=== PATIENT | female | born 1980 | race Caucasian/White ===

== ENCOUNTER 2016-12-05 17:22 | Emergency (ER) | payer OTHER ==
[~2016-12-05] VITALS: Ht 175.3 cm; Wt 93.7 kg
[2016-12-05] MEDS ORDERED: LIDOCAINE 1% MDV 20ML VIAL SC ONE (18:45)
[2016-12-05 19:18] VITALS: BP 118/79
== END 2016-12-05 19:20 | disposition home or self-care (01) ==
LOC: M ED 18:42
DX: S61.214A Laceration without foreign body of right ring finger without damage to nail, initial encounter (principal); W26.8XXA Contact with other sharp object(s), not elsewhere classified, initial encounter; Y92.89 Other specified places as the place of occurrence of the external cause; Y93.89 Activity, other specified; Y99.8 Other external cause status

== ENCOUNTER 2017-10-08 15:00 | Emergency (ER) | payer SELFPAY, OTHER ==
[2017-10-08] MEDS: methylPREDNISolone INJ 125 MG/2 ML VIAL (J2930) IV (15:52)
[2017-10-08 16:00] LABS: BASO # 0.1 10^3/uL (0.0-0.2); BASO % 0.4 % (0.0-1.0); EOS # 0.2 10^3/uL (0.0-0.50); EOS % 1.3 % (0.0-3.0); HEMATOCRIT 38.7 % (36.0-47.0); HEMOGLOBIN 12.4 g/dl (12.0-15.5); IMMATURE GRANULOCYTE % 0.4 % (0-3.0); LYMPH # 1.2 10^3/uL (1.5-4.5); LYMPH % 10.5 % (24.0-44.0); MEAN CORPUSCULAR HEMOGLOBIN 30.6 pg (27.0-33.0); MEAN CORPUSCULAR VOLUME 95.6 fl (80.0-96.0); MONO # 0.5 10^3/uL (0.0-0.8); NEUTROPHILS # 9.5 10^3/uL (1.8-7.7); NEUTROPHILS % 83.4 % (36.0-66.0); PLATELET COUNT, AUTOMATED 381 10^3/uL (150-450); RED BLOOD COUNT 4.05 10^6/uL (4.00-5.40); RED CELL DISTRIBUTION WIDTH 13.3 % (11.5-14.5); WHITE BLOOD COUNT 11.4 10^3/uL (4.0-10.0)
[2017-10-08 16:12] LABS: D-DIMER QUANT 439.8 ng/ml (<500)
[2017-10-08] MEDS: IPRATROPIUM 0.5MG/ALBUTEROL 2.5MG INH SOL UD 3ML (DUONEB)(J7620) NEB (16:26)
[2017-10-08 16:31] LABS: BLOOD UREA NITROGEN 6 MG/DL (7-18); CREATININE FOR GFR 0.78 MG/DL (0.55-1.30); GLUCOSE, FASTING 107 MG/DL (70-100)
[2017-10-08 16:32] LABS: ANION GAP 6 MEQ/L (8-16); CALCIUM LEVEL 8.6 MG/DL (8.5-10.1); CARBON DIOXIDE LEVEL 26 MEQ/L (21-32); CHLORIDE LEVEL 106 MEQ/L (98-107); GLOMERULAR FILTRATION RATE > 60.0 (>60); POTASSIUM SERUM 4.1 MEQ/L (3.5-5.1); SODIUM LEVEL 138 MEQ/L (136-145)
[2017-10-08] MEDS: ALBUTEROL SULFATE 2.5 MG/0.5 ML INH NEB SOLN NEB (17:44)
== END 2017-10-08 17:58 | disposition home or self-care (01) ==
LOC: M ED 15:00
DX: R06.02 Shortness of breath (principal); F17.210 Nicotine dependence, cigarettes, uncomplicated; Z88.1 Allergy status to other antibiotic agents; J30.1 Allergic rhinitis due to pollen
CPT/HCPCS: J2930

== ENCOUNTER 2019-03-11 23:38 | Emergency (ER) | payer SELFPAY ==
[~2019-03-11] VITALS: Ht 175.3 cm; Wt 86.4 kg
[~2019-03-11 23:38] MED LIST: E-ZMIS3 XX; PRED20TA PO; PROAAER10 INH; TESS100C PO
[2019-03-12] MEDS ORDERED: METHOCARBAMOL 1,000 MG/10 ML VIAL (J2800) IV ONE (01:30)
[2019-03-12] MEDS ORDERED: KETOROLAC 30 MG/ML VIAL (J1885) IV ONE (01:30)
[2019-03-12] MEDS ORDERED: METAL LOCK LOOP XX ONE (01:55)
[2019-03-12 02:22] LABS: BASO # 0.1 10^3/uL (0.0-0.2); EOS # 0.4 10^3/uL (0.0-0.5); EOS % 4.3 % (0.0-3.0); HEMATOCRIT 36.2 % (36.0-47.0); HEMOGLOBIN 11.7 g/dl (12.0-15.5); LYMPH # 3.7 10^3/uL (1.5-5.0); LYMPH % 38.8 % (24.0-44.0); MEAN CORPUSCULAR HEMOGLOBIN 30.7 pg (27.0-33.0); MEAN CORPUSCULAR HGB CONC 32.3 g/dl (32.0-36.5); MONO # 0.7 10^3/uL (0.0-0.8); MONO % 7.4 % (0.0-5.0); NEUTROPHILS # 4.6 10^3/uL (1.5-8.5); NEUTROPHILS % 48.2 % (36.0-66.0); PLATELET COUNT, AUTOMATED 328 10^3/uL (150-450); RED BLOOD COUNT 3.81 10^6/uL (4.00-5.40); WHITE BLOOD COUNT 9.4 10^3/uL (4.0-10.0)
[2019-03-12 02:46] LABS: ERYTHROCYTE SEDIMENTATION RATE 13 mm/hr (0-20)
[2019-03-12] MEDS ORDERED: ROBA750T4 PO (02:58)
[2019-03-12 03:34] VITALS: BP 176/96
== END 2019-03-12 03:36 | disposition home or self-care (01) ==
LOC: M ED 23:38
DX: S16.1XXA Strain of muscle, fascia and tendon at neck level, initial encounter (principal); X58.XXXA Exposure to other specified factors, initial encounter; Y92.89 Other specified places as the place of occurrence of the external cause; R68.84 Jaw pain; J02.9 Acute pharyngitis, unspecified; F17.200 Nicotine dependence, unspecified, uncomplicated
CPT/HCPCS: 85025; 85652; 86140; 96374; 96375; 99284; J1885; J2800

== ENCOUNTER → 2021-10-03 | Outpatient (CLI) | payer OTHER, SELFPAY ==
[~2021-10-03] MED LIST changes: +ROBA750T4 PO
== END ==
LOC: M WUC 15:42
PROVIDERS: ATTEND Physician Assistant
DX: S80.02XA Contusion of left knee, initial encounter (principal); S80.12XA Contusion of left lower leg, initial encounter; W18.30XA Fall on same level, unspecified, initial encounter; Y92.009 Unspecified place in unspecified non-institutional (private) residence as the place of occurrence of the external cause

== ENCOUNTER 2022-05-01 13:05 | Emergency (ER) | payer OTHER ==
[~2022-05-01] VITALS: Ht 175.3 cm; Wt 93.2 kg
[2022-05-01] MEDS ORDERED: CLAR10CA3 PO (13:13)
[2022-05-01 18:34] VITALS: BP 160/98
== END 2022-05-01 18:39 | disposition home or self-care (01) ==
LOC: M ED 13:05
DX: M65.4 Radial styloid tenosynovitis [de Quervain] (principal)

== ENCOUNTER 2022-06-20 17:27 | Emergency (ER) | payer OTHER ==
[~2022-06-20] VITALS: Ht 175.3 cm; Wt 86.4 kg
[~2022-06-20 17:27] MED LIST changes: +CLAR10CA3 PO
[2022-06-20 17:28] VITALS: BP 114/75
[2022-06-20] MEDS ORDERED: NORCO, ANEXSIA 5/325MG TABLET (HYDROcodone/ACETAMINOPHEN) PO ONE (19:45)
== END 2022-06-20 20:50 | disposition home or self-care (01) ==
LOC: M ED 17:27
DX: S82.831A Other fracture of upper and lower end of right fibula, initial encounter for closed fracture (principal); W00.0XXA Fall on same level due to ice and snow, initial encounter; Y92.830 Public park as the place of occurrence of the external cause; Y99.0 Civilian activity done for income or pay; F12.10 Cannabis abuse, uncomplicated; J30.89 Other allergic rhinitis; J30.1 Allergic rhinitis due to pollen; Z91.010 Allergy to peanuts; Z88.1 Allergy status to other antibiotic agents

== ENCOUNTER 2023-08-05 09:36 | Emergency (ER) | payer OTHER ==
[~2023-08-05] VITALS: Ht 175.3 cm; Wt 96.3 kg
[2023-08-05 09:36] VITALS: TEMP 97.8
[2023-08-05 10:52] LABS: BASO # 0.1 10^3/uL (0.0-0.2); BASO % 1.6 % (0.0-1.0); EOS # 0.5 10^3/uL (0.0-0.5); EOS % 7.6 % (0.0-3.0); HEMATOCRIT 39.2 % (36.0-47.0); HEMOGLOBIN 12.8 g/dl (12.0-15.5); LYMPH # 2.4 10^3/uL (1.5-5.0); LYMPH % 34.6 % (24.0-44.0); MEAN CORPUSCULAR HEMOGLOBIN 30.8 pg (27.0-33.0); MEAN CORPUSCULAR HGB CONC 32.7 g/dl (32.0-36.5); MEAN CORPUSCULAR VOLUME 94.5 fl (80.0-96.0); MONO # 0.4 10^3/uL (0.0-0.8); MONO % 5.7 % (2.0-8.0); NEUTROPHILS # 3.4 10^3/uL (1.5-8.5); NEUTROPHILS % 50.4 % (36.0-66.0); PLATELET COUNT, AUTOMATED 408 10^3/uL (150-450); RED BLOOD COUNT 4.15 10^6/uL (4.00-5.40); WHITE BLOOD COUNT 6.8 10^3/uL (4.0-10.0)
[2023-08-05 11:25] LABS: CK-MB VALUE MASS < 1.0 NG/ML (<3.6); LIPASE 19 U/L (12-53)
[2023-08-05 11:27] LABS: ALBUMIN 3.5 G/DL (3.2-5.2); ALKALINE PHOSPHATASE 58 U/L (46-116); ALT/SGPT 17 U/L (7.0-40); AST/SGOT 13 U/L (<34); BILIRUBIN,DIRECT 0.2 MG/DL (<0.4); BILIRUBIN,TOTAL 0.6 MG/DL (0.3-1.2); BLOOD UREA NITROGEN 10 MG/DL (9-23); CALCIUM LEVEL 8.6 MG/DL (8.5-10.1); CARBON DIOXIDE LEVEL 27 MMOL/L (20-31); CHLORIDE LEVEL 104 MMOL/L (98-107); CPK CREATINE PHOSPHOKINASE 194 U/L (34-145); CREATININE FOR GFR 0.81 MG/DL (0.55-1.30); GLOMERULAR FILTRATION RATE > 60.0 (>58); GLUCOSE, FASTING 89 MG/DL (60-100); MB/CK RELATIVE INDEX 0.51 (< OR =4); POTASSIUM SERUM 4.2 MMOL/L (3.5-5.1); SODIUM LEVEL 137 MMOL/L (136-145); TOTAL PROTEIN 6.9 G/DL (5.7-8.2)
[2023-08-05 13:16] LABS: RSV AMPLIFICATION NEGATIVE (NEGATIVE)
[2023-08-05] MEDS ORDERED: ISOVUE-370 76% 100ML VIAL As Ordered ONE (13:45)
[2023-08-05] MEDS: KETOROLAC 30 MG/ML 1ML VIAL IV ONE ×2 (13:52→16:10)
[2023-08-05] MEDS: NS 1,000 ML IV ONE (13:52)
[2023-08-05] MEDS ORDERED: ONDANSETRON 4MG 2ML VIAL IV ONE (15:00)
[2023-08-05] MEDS: ALBUTEROL SULFATE 2.5MG/0.5ML INH NEB SOLN NEB ONE (16:10)
[2023-08-05 16:51] VITALS: BP 163/84; O2SAT 96
[2023-08-05] MEDS ORDERED: PRED20TA PO (17:01)
== END 2023-08-05 17:15 | disposition home or self-care (01) ==
LOC: M ED 09:36
DX: R09.1 Pleurisy (principal); R06.02 Shortness of breath; J30.1 Allergic rhinitis due to pollen; Z88.1 Allergy status to other antibiotic agents; Z88.0 Allergy status to penicillin; Z91.018 Allergy to other foods
CPT/HCPCS: 71046; 71275; 80048; 80076; 82550; 82553; 83690; 83880; 84484; 84702; 85025; 87631; 93005; 96361; 96374; 96376; 99284; J1885; Q9967

== ENCOUNTER 2024-09-23 19:05 | Emergency (ER) | payer MEDICAID, OTHER ==
[~2024-09-23] VITALS: Ht 175.3 cm; Wt 96.2 kg
[2024-09-23] MEDS: IBUPROFEN 600MG TAB PO ONE (20:36)
[2024-09-23] MEDS: ACETAMINOPHEN 325 MG TAB PO ONE (20:36)
[2024-09-23] MEDS: NS (Normal Saline) 0.9% 1,000 ML IV ONE (21:34)
[2024-09-23] MEDS: ONDANSETRON 4MG 2ML VIAL IV ONE (21:34)
[2024-09-23] MEDS: OSELTAMIVIR PHOSPHATE 75 MG CAP PO ONE (21:40)
[2024-09-23 22:30] VITALS: TEMP 97.6
[2024-09-23] MEDS ORDERED: ONDA-282 PO (22:58)
[2024-09-23] MEDS ORDERED: OSEL75CA PO (22:58)
[2024-09-23 23:15] VITALS: BP 131/68; O2SAT 95
== END 2024-09-23 23:30 | disposition home or self-care (01) ==
LOC: M ED 19:05
DX: J10.01 Influenza due to other identified influenza virus with the same other identified influenza virus pneumonia (principal); Z88.1 Allergy status to other antibiotic agents; Z91.09 Other allergy status, other than to drugs and biological substances; Z79.52 Long term (current) use of systemic steroids; Z79.899 Other long term (current) drug therapy
CPT/HCPCS: 71046; 87486; 87581; 87633; 87798; 93005; 96361; 96374; 99284; J2405